=== PATIENT | male | born 1990 | race American Indian/Alaskan Native ===

== ENCOUNTER 2016-12-15 06:21 | Emergency (ER) | payer SELFPAY ==
[2016-12-15 07:20] VITALS: BP 127/86
[2016-12-15] MEDS ORDERED: XYLOCAINE 1% 20 mL INFILTRATI ONE (08:34)
[2016-12-15] MEDS ORDERED: XYLOCAINE 1% MPF 5 mL ONE (08:43)
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
[2016-12-15] MEDS ORDERED: XYLOCAINE 1% MPF 5 mL INFILTRATI ONE (09:46)
== END 2016-12-15 09:59 | disposition home or self-care (01) ==
LOC: ED 06:21
DX: S61.411A Laceration without foreign body of right hand, initial encounter (principal); W25.XXXA Contact with sharp glass, initial encounter; Y93.9 Activity, unspecified; Y92.9 Unspecified place or not applicable; Y99.9 Unspecified external cause status
CPT/HCPCS: 99282

== ENCOUNTER 2016-12-27 10:22 | Emergency (ER) | payer SELFPAY ==
--- NOTE | 2016-12-27 11:56 | Emergency Department Report ---
Suture/Staple Removal - HPI Chief Complaint: Laceration/Recheck/Suture Stated Complaint: RT HAND STITCHES REMOVAL Time Seen by Provider: 12/27/16 11:36 When Sutures or Katie Placed: 11-14 Days Ago Wound Location: R index and middle finger ED Review of Systems ROS: Stated complaint: RT HAND STITCHES REMOVAL Other details as noted in HPI Constitutional: denies: chills, fever Gastrointestinal: denies: nausea, vomiting Musculoskeletal: other (denies decrease ROM). denies: joint swelling Skin: denies: change in color Neurological: numbness (of R index and middle finger ) ED Past Medical Hx - Past Medical History Previous Medical History?: No - Surgical History Past Surgical History?: No - Social History Smoking Status: Current Every Day Smoker Substance Use Type: Alcohol - Medications Home Medications: Home Medications Medication Instructions Recorded Confirmed Last Taken Type Cephalexin [Keflex] 500 mg PO 4XD #40 capsule 12/15/16 Unknown Rx traMADol [Ultram 50 MG tab] 50 mg PO Q4HR PRN #8 tablet 12/15/16 Unknown Rx Suture Removal Exam - Exam General: Vital signs noted. No distress. Alert and acting appropriately. PT has [address] to R post index finger between the DIP and PIP. cap refill wnl PT has [address] to R post middle finger between the DIP and PIP, however 2 sutures have pulled thru the skin. cap refill wnl Wound: No Pathologic Erythema, No Tenderness, No Drainage, No Pus, No Wound Dehiscence Other Systems: All other systems reviewed and are unremarkable. ED Course Vital Signs 12/27/16 10:29 Temperature 98.3 F Pulse Rate 100 H Respiratory 12 Rate Blood Pressure 142/90 O2 Sat by Pulse 100 Oximetry - Reevaluation(s) Reevaluation #1: 12/27/16 11:54 PT advised to follow up with ortho given he complains of finger numbness sp finger laceration. PT verbalizes understanding. 12/27/16 11:59 PT states he had TD vaccine last year - Procedure Description Procedures done: 4 sutures removed from R index finger. 4 sutures removed from R middle finger. no wound dehiscence noted. - Pulse Oximetry Interpretation Digit-Finger Initial Pulse Oximetry Readin Actions Taken: none ED Recheck MDM - Differential Diagnosis Wound Recheck, Suture/Staple Removal Critical Care Time: No Critical care attestation.: If time is entered above; I have spent that time in minutes in the direct care of this critically ill patient, excluding procedure time. ED Disposition Clinical Impression: Visit for suture removal Disposition: TO HOME OR SELFCARE Is pt being admited?: No Does the pt Need Aspirin: No Condition: Stable Instructions: Suture Removal (ED) Additional Instructions: follow up with ortho Referrals: PRIMARY CAREMD [Primary Care Provider] - 3-5 Days ALBANIA SMITH MD [Staff Physician] - 3-5 Days Time of Disposition: 11:56
[2016-12-27 12:17] VITALS: BP 120/83
== END 2016-12-27 12:17 | disposition home or self-care (01) ==
LOC: ED 10:22
DX: Z48.02 Encounter for removal of sutures (principal); F17.210 Nicotine dependence, cigarettes, uncomplicated

== ENCOUNTER 2019-11-21 17:52 | Emergency (ER) | payer SELFPAY ==
[2019-11-21] MEDS ORDERED: DIPHtheria,PERTUSSIS(ACELL),TETANUS VACCINE/PF 0.5 ML VIAL IM ONE (18:04)
[2019-11-21] MEDS ORDERED: ceFAZolin/NS 1 GM/50 ML 1 GM/50 ML BAG IV ONE (18:04)
[2019-11-21 18:10] LABS: Basophils % (Auto) 0.4 % (0.0-1.8); Eosinophils % (Auto) 0.1 % (0.0-4.3); Hematocrit 39.1 % (35.5-45.6); Hemoglobin 12.5 gm/dl (11.8-15.2); Lymphocytes # (Auto) 1.5 K/mm3 (1.2-5.4); Lymphocytes % (Auto) 24.9 % (13.4-35.0); Mean Corpuscular HGB Conc 32 % (32-34); Mean Corpuscular Volume 79 fl (84-94); Monocytes # (Auto) 0.5 K/mm3 (0.0-0.8); Monocytes % (Auto) 8.4 % (0.0-7.3); Platelet Count 270 K/mm3 (140-440); Red Blood Count 4.98 M/mm3 (3.65-5.03); Red Cell Distribution Width 13.7 % (13.2-15.2)
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
[2019-11-21 18:26] LABS: INR 1.05 (0.87-1.13)
[2019-11-21 18:27] LABS: Partial Thromboplastin Time 24.1 Sec. (24.2-36.6)
[2019-11-21 18:30] LABS: Alanine Aminotransferase 25 units/L (7-56); Albumin 4.5 g/dL (3.9-5); BUN/Creatinine Ratio 9; Blood Urea Nitrogen 12 mg/dL (9-20); Calcium 9.5 mg/dL (8.4-10.2); Hemolysis Index 5
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
[2019-11-21] MEDS ORDERED: LIDOCAINE 1%/EPINEPHRINE 1:100,000 VIAL (20 ML) INFILTRATI ONE (18:51)
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
[2019-11-21] MEDS ORDERED: KETOROLAC 30 MG/1 ML INJ IV ONE (19:00)
[2019-11-21] MEDS ORDERED: POTASSIUM CHLORIDE ER 20 MEQ TAB PO ONE (20:23)
[2019-11-23 12:48] VITALS: BP 115/61
== END 2019-11-21 21:03 | disposition home or self-care (01) ==
LOC: ED 17:52
DX: S21.231A Puncture wound without foreign body of right back wall of thorax without penetration into thoracic cavity, initial encounter (principal); S06.899A Other specified intracranial injury with loss of consciousness of unspecified duration, initial encounter; E87.6 Hypokalemia; X99.1XXA Assault by knife, initial encounter; Y93.89 Activity, other specified; Y92.89 Other specified places as the place of occurrence of the external cause; Y99.8 Other external cause status
CPT/HCPCS: 12001; 36415; 70450; 71045; 74177; 80053; 85025; 85610; 85730; 86850; 86900; 86901; 90471; 90715; 96365; 96375; 99285; J0690; J1885; Q9967